=== PATIENT | male | born 1945 | race Caucasian/White ===

== ENCOUNTER 2016-05-19 06:23 | Day surgery (SDC) | payer MEDICARE, OTHER ==
[2016-05-19] VITALS (27 sets, daily range): BP systolic 130–160; BP diastolic 62–79; PULSE 44–102; RESP 10–23; Ht 167.6 cm; Wt 85.5 kg
[~2016-05-19] VITALS: Ht 167.6 cm; Wt 85.5 kg
[2016-05-19] MEDS ORDERED: LIDOCAINE 1% (MDV) 20 ML INJ ONE (06:52)
[2016-05-19] MEDS ORDERED: BUPIVACAINE 0.5% (SDV) 30 ML INJ ONE (06:53)
[2016-05-19] MEDS ORDERED: POLYMYXIN/BACITRACIN 1L IRRIG IRR ONE (07:00)
[2016-05-19 07:23] LABS: ADD SCAN DIFF NO
[2016-05-19 07:25] LABS: BASOPHIL # 0.1 10^3/ul (0.0-0.1); BASOPHILS % 0.6 % (0.0-2.0); EOSINOPHILS # 0.1 10^3/ul (0.0-0.5); EOSINOPHILS % 1.2 % (0.0-7.0); LYMPHOCYTES # 3.7 10^3/ul (0.8-2.9); LYMPHOCYTES % 44.9 % (15.0-51.0); MEAN CORPUSCULAR HGB CONC 34.1 g/dl (32.0-37.0); MEAN CORPUSCULAR VOLUME 87.8 fl (82.0-101.0); MEAN PLATELET VOLUME 11.2 fl (7.4-10.4); MONOCYTE # 0.5 10^3/ul (0.3-0.9); MONOCYTES % 6.3 % (0.0-11.0); NEUTROPHIL # 3.8 10^3/ul (1.6-7.5); NEUTROPHILS % 46.6 % (39.0-77.0); PLATELET COUNT 200 10^3/UL (140-415); RED BLOOD COUNT 4.67 10^6/ul (4.70-6.10); RED CELL DISTRIBUTION WIDTH 12.5 % (11.5-14.5); WHITE BLOOD COUNT 8.2 10^3/ul (4.8-10.8)
[2016-05-19] MEDS ORDERED: CEFAZOLIN 1 GM/50 ML (PMX) 50 ML IVPB ONE ×2 (07:31→08:16)
[2016-05-19] MEDS ORDERED: PRAV10TA43 PO (08:04)
[2016-05-19] MEDS ORDERED: VALS1TAB76 PO (08:04)
[2016-05-19] MEDS ORDERED: LOSA25TA2 PO (08:04)
[2016-05-19] MEDS ORDERED: FENO160T13 PO (08:04)
[2016-05-19 08:05] LABS: INR 0.97; PROTIME 12.9 Sec (12.2-14.2)
[2016-05-19 08:06] LABS: PARTIAL THROMBOPLASTIN TIME 27.2 Sec (25.0-35.0)
[2016-05-19] MEDS ORDERED: MIDAZOLAM 1 MG/ML 2 ML INJ ONE (08:07)
[2016-05-19] MEDS ORDERED: PROPOFOL 40 ML ONE (08:07)
[2016-05-19] MEDS ORDERED: FENTAnyl 50 MCG/ML VIAL ONE (08:07)
[2016-05-19 08:10] LABS: POTASSIUM 3.8 mmol/L (3.5-5.1)
[2016-05-19 08:19] LABS: CALCIUM 9.3 mg/dl (8.4-10.2); CREATININE 1.49 mg/dl (0.61-1.24)
[2016-05-19] MEDS ORDERED: PROPOFOL 20 ML ONE (09:20)
[2016-05-19] MEDS ORDERED: SOD CHLORIDE 0.9% 1,000 ML IV SCH (09:38)
[2016-05-19] MEDS ORDERED: SOD CHLORIDE 0.9% 1,000 ML ONE (10:00)
[2016-05-19] MEDS ORDERED: IOHEXOL 350MG/ML 50 ML BTL ONE (10:00)
[2016-05-19] MEDS ORDERED: ACETAMINOPHEN 325 MG TAB PO PRN ×2 (10:00→12:00)
[2016-05-19] MEDS ORDERED: morphine 2 MG INJ IV PRN ×2 (10:00→12:00)
--- NOTE | 2016-05-19 10:24 | RADRPT ---
PROCEDURE: XR Chest. CLINICAL INDICATION: Shortness of breath. TECHNIQUE: Single frontal chest x-ray. COMPARISON: None available FINDINGS: The lungs are clear. No focal opacification is seen. No pneumothorax or pleural effusion is seen. The cardiomediastinal silhouette is unremarkable. The right hemidiaphragm is mildly elevated. A brittni l lead left pacemaker is in place with the lead tips overlying the right atrium and right ventricle. The osseous structures are grossly unremarkable. IMPRESSION: No evidence of acute cardiopulmonary disease. RPTAT: JJ .Natalio Soto MD, MD Date Time Electronically viewed and signed by .Natalio Soto MD, MD on 05/19/2016 10:24 .A/
--- NOTE | 2016-05-19 10:42 | SP ---
DATE OF PROCEDURE: 05/19/2016 PREPROCEDURE DIAGNOSIS: The patient is a 70-year-old gentleman with history of hypertension, histor y of recurrent syncope, history of paroxysmal atrial fibrillation with tachybrady syndrome and falls , who required a pacemaker to prevent further syncope and use of antiarrhythmic medications. POSTPROCEDURE DIAGNOSIS: The patient is a 70-year-old gentleman with history of hypertension, history of recurrent syncope, h istory of paroxysmal atrial fibrillation with tachybrady syndrome and falls, who required a pacemake r to prevent further syncope and use of antiarrhythmic medications. PROCEDURE PERFORMED: 1. Dual-chamber pacemaker implantation. 2. Fluoroscopy with interpretation. SURGEON: Mikhail Crow MD DEVICE INFORMATION: 1. The implanted device is [employer] MRI safe, [employer] MRI pacemaker 2272, serial #[id number], placed in the left pectoral area. 2. Atrial lead is [employer] Tendril MRI LTA lead 1200 52 cm lead, serial #[id number]. 3. RV lead is [employer] Tendril MRI lead LTA 1200, 58 cm lead [id number]. ACUTE THRESHOLD: R-wave atrial sensing is 3.4 millivolts, lead impedance 440 ohms, threshold 1.5 vo lts at 0.4 msec. Ventricular R-wave was 3.2 millivolts, lead impedance 560 ohms, threshold 0.75 vol ts at 0.4 msec. Initial setting is DDD 50. DESCRIPTION OF PROCEDURE: The informed consent was obtained. The patient was brought into the [facility] t station in a fasting condition. He received antibiotics. Anesthesiologist supervised airway florentino tion. The left chest was prepped and draped in the usual sterile fashion, 1% lidocaine was used for local analgesia. Using a #10 scalpel, a 3 cm incision was placed and a pocket was created using ca utery and blunt dissection. Using modified Seldinger technique, subclavian was cannulated and J-wir e passed easily. From there, using an 8-Maltese sheath as a base split sheath technique was ascertai arianna to allow placement of 8-Maltese sheath. From there, RV lead was advanced into RV apex and was ac tively fixed. Some slack was left inside the lead and the sheath was pulled away. The lead was sut ured to the muscle with 0 Ethibond sutures. Then, another 8-Maltese sheath was introduced and the at rial lead was advanced using J-tip stylet. It was positioned in the right atrial appendage. It was actively fixed. The J stylet was pushed away. The sheath was pulled away and the lead was sutured to the muscle layer with 0 Ethibond sutures. Then, both leads were attached to the generator. The pocket was irrigated with antibiotic solution and the entire system was placed inside the pocket . The skin was closed in multiple layers of 2-0 Vicryl sutures. Steri-Strips were placed top of th e incision. The patient appears to have tolerated the procedure well. He will have a chest x-ray, left arm sling, continuous . Dictated By: MIKHAIL CAMARENA/FABIO Conf#: [id number] DID#: [id number]
[2016-05-19] MEDS ORDERED: HYDROCODONE/APAP (5/325) TAB PO PRN (12:00)
[2016-05-19] MEDS ORDERED: DOCUSATE SODIUM 100 MG CAP PO PRN (12:00)
[2016-05-19] MEDS: LOSARTAN 25 MG TAB PO SCH (12:00)
[2016-05-19] MEDS ORDERED: ALBUTEROL/IPRATROPIUM (NEB) 3 ML AMP HHN PRN (12:00)
[2016-05-19] MEDS ORDERED: MAGNESIUM HYDROXIDE 30ML CUP PO PRN (12:00)
[2016-05-19] MEDS ORDERED: NACL 0.9% 3 ML SYG IV SCH (12:00)
[2016-05-19] MEDS ORDERED: ONDANSETRON 4 MG INJ IV PRN (12:00)
[2016-05-19] MEDS: hydrALAzine 20 MG INJ IV PRN ×2 (12:13→18:25)
--- NOTE | 2016-05-19 12:19 | HP ---
DATE OF ADMISSION: 05/19/2016 REASON FOR ADMISSION: Status post pacemaker placement for tachybrady syndrome. HISTORY OF PRESENT ILLNESS: This is a 70-year-old male who has a past medical history of hypertension, history of recurrent syncope, history of paroxysmal atrial fibrillation with tachycardia syndrome and falls, history of emphysema, who was brought in by blueprinting machine operator, Dr. Home Crow, for possible pacemaker placement. The patient underwent a dual-chamber pacemaker implantation. At the time of my evaluation, he was hemodynamically stable. I evaluated the patient in the recovery room. His breathing is better. No chest pain, palpitation, headache, dizziness, blurry vision, constipation, diarrhea. He is written for IV Ancef q. 8 hours for perioperative prophylaxis. At the time of my evaluation, he is waiting for a telemetry floor bed. REVIEW OF SYSTEMS: Positive for a fall episode and palpitations intermittently. Other review of systems has been obtained and is negative except what is mentioned in the history of present illness. PAST MEDICAL HISTORY: Notable for hypertension, emphysema, history of atrial fibrillation with rate tachybrady syndrome and history of falls at home. PAST SURGICAL HISTORY: History of cataract surgery 2014. SOCIAL HISTORY: The patient lives with his family in [place]. No smoking, alcohol or recreational drug use. FAMILY HISTORY: No family history of chronic kidney disease or coronary artery disease as per the family. PHYSICAL EXAMINATION: VITAL SIGNS: Temperature 98.5, heart rate 50, respiration 20, blood pressure 139/67, saturation 97% on 2 liters nasal cannula. GENERAL: Awake, alert, in no distress. HEENT: Normal. Oropharynx clear. NECK: Supple, no JVD, no lymphadenopathy. LUNGS: Clear to auscultation. No crackles, no wheezes. HEART: S1, S2, with regular rhythm, no murmur. ABDOMEN: Soft, nontender, nondistended. Bowel sounds are present. Pacemaker site is clear. No hematoma, no bleeding. EXTREMITIES: No clubbing, cyanosis, or edema. NEUROLOGICAL: Nonfocal, intact. Cranial nerves II through XII intact. No focal deficits. SKIN: No rash. PSYCHIATRIC: Appropriate affect. LABORATORY DATA/DIAGNOSTIC IMAGING: WBC 8.2, hemoglobin 14, platelet count 200. Sodium 146, potassium 3.8, chloride 107, bicarbonate 25, BUN 28, creatinine 1.4, glucose 102, calcium 9.3. Prothrombin time 12.9, PTT 27.2, INR 0.97. IMPRESSION: This is a 70-year-old male with: 1. Status post dual chamber pacemaker placement for tachybrady syndrome with history of atrial fibrillation and history of falls. 2. History of atrial fibrillations with tachybrady syndrome. 3. History of hypertension. currently BP in systolic 190s 4. History of emphysema. 5. Atrial fibrillation. 6. Acute kidney injury secondary to prerenal azotemia on a previous history of possible chronic kidney disease. 7. Possible history of chronic kidney disease stage II to III secondary to hypertensive nephrosclerosis. PLAN: 1. The patient is getting admitted to the telemetry floor. We will continue the patient on IV Ancef 1 gram q. 8 hours for perioperative antibiotic coverage status post pacemaker placement. 2. Pepcid 20 mg IV b.i.d. for GI prophylaxis. 3. SCDs for DVT prophylaxis. 4. Continue the home medication of losartan 25 mg p.o. daily and hydralazine 10 mg IV every 4 hours p.r.n. systolic blood pressure more than 150. 5. Pain control with Tylenol, [place], morphine. The patient currently seen in the recovery room and the patient will be admitted to the telemetry floor. 6. We will continue to follow the patient along with the supply chain director, Dr. Home Crow. Dictated By: KELSY YAN MD, KP/FABIO Conf#: [id number] DID#: [id number] MTDD
[2016-05-19] MEDS: CEFAZOLIN 1 GM/50 ML (PMX) 50 ML IVPB SCH ×2 (16:15→22:34)
--- NOTE | 2016-05-19 17:55 | CONS ---
DATE OF ADMISSION: 05/19/2016 DATE OF CONSULTATION: 05/19/2016 TYPE OF CONSULTATION: Cardiology REASON FOR CONSULTATION: Hypertension. REQUESTING PHYSICIAN: Kelsy Bosch MD HISTORY OF PRESENT ILLNESS: Mr. Schultz is a 70-year-old male with a history of symptomatic bradyc ardia status post permanent pacemaker implant today, [employer]er group leader, recurrent syncope, hyp ertension, paroxysmal atrial fibrillation, who as stated before presented today and underwent placem ent of permanent pacemaker with Dr. Mikhail Huff due to bradycardia, symptomatic. Postoperatively, the patient has had uncontrolled blood pressures and I have been asked to manage. The patient at th is time has mild pain at the site of pacemaker insertion. Denies chest pain. PAST MEDICAL HISTORY: As above in HPI. MEDICATIONS CURRENTLY IN HOSPITAL: 1. Lipitor 20 mg at bedtime. 2. Pepcid 20 mg q.12. 3. Cefazolin. 4. Cozaar 25 mg daily. 5. Hydralazine p.r.n. 6. Zofran p.r.n. 7. Left Hand p.r.n. 8. Morphine p.r.n. 9. Colace p.r.n. 10. DuoNeb p.r.n. ALLERGIES: NO KNOWN DRUG ALLERGIES. SOCIAL HISTORY: No tobacco, ETOH or illicit drug use. FAMILY HISTORY: Negative for sudden cardiac or early CAD. REVIEW OF SYSTEMS: As above in HPI. CONSTITUTIONAL: No fevers, chills. PULMONARY: No current shortness of breath. CARDIOVASCULAR: Bradycardia, status post permanent pacemaker. GASTROINTESTINAL: No vomiting. GENITOURINARY: No hematuria. MUSCULOSKELETAL: Degenerative joint disease. PSYCHIATRIC: The patient denies depression. NEUROLOGIC: No documented history of CVA. PHYSICAL EXAMINATION VITAL SIGNS: Temperature of 97.9, blood pressure markedly elevated at 160/73, pulse 89, respiratory rate 20, saturating 96%. GENERAL: The patient is alert, awake, in no acute distress. NECK: JVP approximately 8 to 9 cm water. CHEST: Fair movement throughout. Left upper pocket pacer site covered by a Tegaderm. Clean, dry an d intact, no significant swelling. ABDOMEN: Positive bowel sounds, soft. EXTREMITIES: No edema, 1+ pulses bilaterally posterior tibial. LABORATORY DATA: As above in HPI, with most recent from today, white blood cell count 8.2, hemoglob in 14, platelet count 200. Sodium 146, potassium 3.8, creatinine of 1.49, BUN of 28. INR 0.97. IMAGING STUDIES: As above in HPI. No further imaging studies for my review at this time. ECG: No electrocardiograms for my review at this time. IMPRESSION: 1. Hypertension, uncontrolled. 2. Postop day #0 status post permanent pacemaker implantation for symptomatic bradycardia. 3. Symptomatic bradycardia. 4. History of atrial fibrillation with tachybrady syndrome. 5. Renal failure. 6. Dyslipidemia. RECOMMENDATIONS: 1. At this time, would maintain the patient on telemetry monitoring to continue to assess pacemaker function. 2. Give patient his baseline losartan and follow up blood pressures with possible need for further up titration and we will continue the patient's p.r.n. hydralazine at this time. 3. Pain control. 4. Continue the patient's Ancef prophylactic antibiotics postop. 5. Follow up the patient's volume status closely and we will check a BNP to further assess this. 6. Ongoing evaluation by PMD, nephrology. Additionally, we will check a fasting lipid panel for ge neral risk stratification and adjust the patient's lipid-lowering medication as necessary. Thank you for allowing me to take part in the care of this patient. I will continue to follow him donovan mcadams closely with you. Further recommendations will be made as the patient progresses through his in patient hospital clinical course. Dictated By: MASTER MAN/NTS Conf#: [id number] DID#: [id number] CC: MIKHAIL HUFF MD; KELSY BOSCH MD;*[facility]*
--- NOTE | 2016-05-19 19:21 | RADRPT ---
Vent Rate: 50 bpm RR Interval: 0 msec MI Interval: 0 msec QRS Duration: 102 msec QT Interval: 464 msec QTC Interval: 423 msec P-R-T [place]: 0 - -27 - 62 degrees Electronic atrial pacemaker Electronically Signed By: Jorge Luis Thakkar [id number]
[2016-05-19] MEDS ORDERED: ATORVASTATIN 20 MG TAB PO SCH (21:00)
[2016-05-19] MEDS: FAMOTIDINE 20 MG INJ IV SCH (21:24)
[2016-05-20] VITALS (9 sets, daily range): BP systolic 138–156; BP diastolic 67–72; PULSE 49–91; RESP 16–18
[2016-05-20] MEDS: CEFAZOLIN 1 GM/50 ML (PMX) 50 ML IVPB SCH ×2 (05:58→14:51)
[2016-05-20 07:14] LABS: ADD SCAN DIFF NO
[2016-05-20 07:33] LABS: CHOL/HDL RATIO 5.2 RATIO
[2016-05-20 07:34] LABS: BASOPHILS % 0.4 % (0.0-2.0); EOSINOPHILS % 0.2 % (0.0-7.0); HEMATOCRIT 39.9 % (42.0-52.0); HEMOGLOBIN 13.4 g/dl (14.0-18.0); LYMPHOCYTES # 2.9 10^3/ul (0.8-2.9); LYMPHOCYTES % 25.9 % (15.0-51.0); MEAN CORPUSCULAR HEMOGLOBIN 29.8 pg (29.0-33.0); MEAN CORPUSCULAR HGB CONC 33.6 g/dl (32.0-37.0); MEAN CORPUSCULAR VOLUME 88.7 fl (82.0-101.0); MEAN PLATELET VOLUME 11.4 fl (7.4-10.4); MONOCYTE # 0.9 10^3/ul (0.3-0.9); MONOCYTES % 7.5 % (0.0-11.0); NEUTROPHIL # 7.4 10^3/ul (1.6-7.5); NEUTROPHILS % 65.6 % (39.0-77.0); PLATELET COUNT 213 10^3/UL (140-415); RED CELL DISTRIBUTION WIDTH 12.9 % (11.5-14.5); WHITE BLOOD COUNT 11.3 10^3/ul (4.8-10.8)
[2016-05-20 07:36] LABS: POTASSIUM 3.6 mmol/L (3.5-5.1)
[2016-05-20 07:39] LABS: CALCIUM 8.9 mg/dl (8.4-10.2); CREATININE 1.21 mg/dl (0.61-1.24)
[2016-05-20] MEDS: LOSARTAN 25 MG TAB PO SCH (09:06)
[2016-05-20] MEDS: FAMOTIDINE 20 MG INJ IV SCH (09:07)
--- NOTE | 2016-05-20 11:04 | PN ---
Date/Time of Note Date/Time of Note DATE: 05/20/16 TIME: 10:56 Assessment/Plan VTE Prophylaxis VTE Prophylaxis Intervention: SCD's Lines/Catheters IV [facility]from [facility] [place] Assessment/Plan Assessment/Plan 1. Status post dual chamber pacemaker placement for tachybrady syndrome with history of atrial fibrillation and history of falls. 2. History of atrial fibrillations with tachybrady syndrome. 3. History of hypertension. currently BP in systolic 190s 4. History of emphysema. 5. Atrial fibrillation. 6. Acute kidney injury secondary to prerenal azotemia on a previous history of possible chronic kidney disease. 7. Possible history of chronic kidney disease stage II to III secondary to hypertensive nephrosclerosis. PLAN: IV ancef BP control with Losartan and IV hydralazine prn cardiology to follow- if cleared then possible d/c home today Subjective 24 Hr Interval Summary Free Text/Dictation remained stable, afebrile, BP stable Exam/Review of Systems Vital Signs Vitals Vital Signs Date Time Temp Pulse Resp B/P Pulse Ox O2 Delivery O2 Flow Rate FiO2 05/20/16 09:07 54 138/68 05/20/16 08:04 94.4 18 95 05/19/16 18:52 Nasal Cannula 2.0 Intake and Output 05/19/16 05/19/16 05/20/16 15:00 23:00 07:00 Intake Total 120 ml 280 ml Output Total 250 ml 400 ml Balance -130 ml -120 ml Exam GENERAL: Awake, alert, in no distress. HEENT: Normal. Oropharynx clear. NECK: Supple, no JVD, no lymphadenopathy. LUNGS: Clear to auscultation. No crackles, no wheezes. HEART: S1, S2, with regular rhythm, no murmur. ABDOMEN: Soft, nontender, nondistended. Bowel sounds are present. Pacemaker site is clear. No hematoma, no bleeding. EXTREMITIES: No clubbing, cyanosis, or edema. NEUROLOGICAL: Nonfocal, intact. Cranial nerves II through XII intact. No focal deficits. SKIN: No rash. PSYCHIATRIC: Appropriate affect. Results Result Diagram: 05/20/16 0641 05/20/16 0641 Results 24 hrs Laboratory Tests Test 05/20/16 06:41 Anion Gap 18 H Basophils # 0.0 Basophils % 0.4 Blood Urea Nitrogen 23 H Calcium Level 8.9 Carbon Dioxide Level 26 Chloride Level 106 Cholesterol Level 111 Cholesterol/HDL Ratio 5.2 Creatinine 1.21 Eosinophils # 0.0 Eosinophils % 0.2 Glucose Level 97 HDL Cholesterol 21 L Hematocrit 39.9 L Hemoglobin 13.4 L LDL Cholesterol, Calculated 61 Lymphocytes # 2.9 Lymphocytes % 25.9 Mean Corpuscular Hemoglobin 29.8 Mean Corpuscular Hemoglobin Concent 33.6 Mean Corpuscular Volume 88.7 Mean Platelet Volume 11.4 H Monocytes # 0.9 Monocytes % 7.5 Neutrophils # 7.4 Neutrophils % 65.6 Nucleated Red Blood Cells # 0.0 Nucleated Red Blood Cells % 0.0 Platelet Count 213 Potassium Level 3.6 Red Blood Count 4.50 L Red Cell Distribution Width 12.9 Sodium Level 146 H Triglycerides Level 143 White Blood Count 11.3 #H Medications Medications Current Medications Miscellaneous Information (* Miscellaneous Pharmacy Order) HOLD all METFORMIN ... ONCE XX ; Start 05/19/16 at 10:00; Stop 05/21/16 at 09:59 Acetaminophen (Tylenol Tab) 650 mg Q4H PRN PO NON-CARDIAC PAIN LEVEL (1-3); Start 05/19/16 at 10:00 Morphine Sulfate 2 mg 2 mg Q2H PRN IV FOR NON CARDIAC PAIN (4-10); Start at 10:00 Cefazolin Sodium (Ancef 1 Gm/50 ml (Pmx)) 50 ml @ 100 mls/hr Q8 IVPB Last administered on 05/20/16 05:58; Admin Dose 100 MLS/HR; Start 05/19/16 at 14:00 Miscellaneous Information (* Miscellaneous Pharmacy Order) DC all Lovenox, Hepari... ONCE XX ; Start 05/19/16 at 10:00 Losartan Potassium (Cozaar) 25 mg DAILY PO Last administered on 05/20/16 09:06 ; Admin Dose 25 MG; Start 05/19/16 at 12:00 Atorvastatin Calcium (Lipitor) 20 mg HS PO Last administered on 05/19/16 21:24 ; Admin Dose 20 MG; Start 05/19/16 at 21:00 Hydralazine HCl (Apresoline) 10 mg Q4H PRN IV SBP>150 mm hg Last administered on 05/19/16 18:25; Admin Dose 10 MG; Start 05/19/16 at 12:00 Ondansetron HCl (Zofran Inj) 4 mg Q4H PRN IV NAUSEA AND/OR VOMITING; Start at 12:00 Acetaminophen (Tylenol Tab) 650 mg Q6H PRN PO PAIN LEVEL 1-3 OR FEVER; Start at 12:00 Acetaminophen/ Hydrocodone Bitart ([place] (5/325)) 1 tab Q6H PRN PO MODERATE PAIN LEVEL 4-6; Start 05/19/16 at 12:00 Morphine Sulfate (morphine) 2 mg Q4H PRN IV SEVERE PAIN LEVEL 7-10 Last administered on 05/19/16 12:13; Admin Dose 2 MG; Start 05/19/16 at 12:00 Docusate Sodium (Colace) 100 mg Q12H PRN PO CONSTIPATION; Start 05/19/16 at 12: 00 Magnesium Hydroxide (Milk Of Mag) 30 ml DAILY PRN PO CONSTIPATION; Start at 12:00 Famotidine (Pepcid Iv) 20 mg Q12 IV Last administered on 05/20/16 09:07; Admin Dose 20 MG; Start 05/19/16 at 21:00 KELSY YAN MD May 20, 2016 11:04
--- NOTE | 2016-05-20 11:05 | PDOCDIS ---
Discharge Instructions CONDITION Patient Condition: Good HOME CARE INSTRUCTIONS: Special Diet: heart healthy diet ACTIVITY: Activity Restrictions: Slowly Increase Activity Rest between Activity Avoid heavy lifting Avoid Heavy Housework FOLLOW UP/APPOINTMENTS Appointments follow up with his own in 1-2 week after discharge, Follow up with Dr millan/ Ele in 1-2 week after discharge, Follow up with Dr.Kalpesh Yan for his CKD in 2-3 weeks( if pt wants to follow ) KELSY YAN MD May 20, 2016 11:05
[2016-05-20] MEDS ORDERED: CEPH500C PO (11:10)
[2016-05-20] MEDS ORDERED: ONDA4TAB8 PO (11:10)
[2016-05-20] MEDS ORDERED: HYDR-3498 PO (11:10)
--- NOTE | 2016-05-20 17:35 | CONS ---
Date/Time of Note Date/Time of Note DATE: 05/20/16 TIME: 17:31 Assessment/Plan Assessment/Plan Chief Complaint/Hosp Course IMPRESSION: 1. Hypertension-overall improved BP on current medications 2. Postop day #1 status post permanent pacemaker implantation for symptomatic bradycardia. 3. Symptomatic bradycardia. 4. History of atrial fibrillation with tachybrady syndrome. 5. Renal failure. 6. Dyslipidemia. REcc: -Continue statin -Continue losartan -abx prophylaxis -D/C planning with outpatient f/u 7-10 days Problems: Consultation Date/Type/Reason Admit Date/Time May 19, 2016 at 09:38 Initial Consult Date 05/19/2016 Type of Consultation: cardiology Reason for Consultation HTN Referring Provider: MIKHAIL HUFF MD Exam/Review of Systems Vital Signs Vitals Vital Signs Date Time Temp Pulse Resp B/P Pulse Ox O2 Delivery O2 Flow Rate FiO2 05/20/16 16:55 50 05/20/16 12:17 97.6 18 156/70 95 05/20/16 08:20 Nasal Cannula 2.0 Intake and Output 05/19/16 05/19/16 05/20/16 15:00 23:00 07:00 Intake Total 120 ml 280 ml Output Total 250 ml 400 ml Balance -130 ml -120 ml Exam Review of Systems: CONSTITUTIONAL: No fevers, chills. PULMONARY: No sob CARDIOVASCULAR: No chest pain/palpitations GASTROINTESTINAL: No nausea/vomiting. GENITOURINARY: No hematuria/dysuria. MUSCULOSKELETAL: No myagias/arthalgias. PSYCHIATRIC: The patient denies depression. NEUROLOGIC: No weakness Constitutional: alert, oriented Psych: no complaints Head: normocephalic ENMT: mucosa pink and moist Neck: jvd (8 cm water), supple Respiratory: clear to auscultation Cardiovascular: regular rate and rhythm Gastrointestinal: non-tender, soft Musculoskeletal: muscle tone (normal) Extremities: edema (none) Neurological: other (No mfocal deficits) Results Result Diagram: 05/20/16 0641 05/20/16 0641 Results 24 hrs Laboratory Tests Test 05/20/16 06:41 Anion Gap 18 H Basophils # 0.0 Basophils % 0.4 Blood Urea Nitrogen 23 H Calcium Level 8.9 Carbon Dioxide Level 26 Chloride Level 106 Cholesterol Level 111 Cholesterol/HDL Ratio 5.2 Creatinine 1.21 Eosinophils # 0.0 Eosinophils % 0.2 Glucose Level 97 HDL Cholesterol 21 L Hematocrit 39.9 L Hemoglobin 13.4 L LDL Cholesterol, Calculated 61 Lymphocytes # 2.9 Lymphocytes % 25.9 Mean Corpuscular Hemoglobin 29.8 Mean Corpuscular Hemoglobin Concent 33.6 Mean Corpuscular Volume 88.7 Mean Platelet Volume 11.4 H Monocytes # 0.9 Monocytes % 7.5 Neutrophils # 7.4 Neutrophils % 65.6 Nucleated Red Blood Cells # 0.0 Nucleated Red Blood Cells % 0.0 Platelet Count 213 Potassium Level 3.6 Red Blood Count 4.50 L Red Cell Distribution Width 12.9 Sodium Level 146 H Triglycerides Level 143 White Blood Count 11.3 #H Medications Medications Current Medications Miscellaneous Information (* Miscellaneous Pharmacy Order) HOLD all METFORMIN ... ONCE XX ; Start 05/19/16 at 10:00; Stop 05/21/16 at 09:59 Acetaminophen (Tylenol Tab) 650 mg Q4H PRN PO NON-CARDIAC PAIN LEVEL (1-3); Start 05/19/16 at 10:00 Morphine Sulfate 2 mg 2 mg Q2H PRN IV FOR NON CARDIAC PAIN (4-10); Start at 10:00 Cefazolin Sodium (Ancef 1 Gm/50 ml (Pmx)) 50 ml @ 100 mls/hr Q8 IVPB Last administered on 05/20/16 14:51; Admin Dose 100 MLS/HR; Start 05/19/16 at 14:00 Losartan Potassium (Cozaar) 25 mg DAILY PO Last administered on 05/20/16 09:06 ; Admin Dose 25 MG; Start 05/19/16 at 12:00 Atorvastatin Calcium (Lipitor) 20 mg HS PO Last administered on 05/19/16 21:24 ; Admin Dose 20 MG; Start 05/19/16 at 21:00 Hydralazine HCl (Apresoline) 10 mg Q4H PRN IV SBP>150 mm hg Last administered on 05/19/16 18:25; Admin Dose 10 MG; Start 05/19/16 at 12:00 Ondansetron HCl (Zofran Inj) 4 mg Q4H PRN IV NAUSEA AND/OR VOMITING; Start at 12:00 Acetaminophen (Tylenol Tab) 650 mg Q6H PRN PO PAIN LEVEL 1-3 OR FEVER; Start at 12:00 Acetaminophen/ Hydrocodone Bitart ([place] (5/325)) 1 tab Q6H PRN PO MODERATE PAIN LEVEL 4-6 Last administered on 05/20/16 12:53; Admin Dose 1 TAB; Start at 12:00 Morphine Sulfate (morphine) 2 mg Q4H PRN IV SEVERE PAIN LEVEL 7-10 Last administered on 05/19/16 12:13; Admin Dose 2 MG; Start 05/19/16 at 12:00 Docusate Sodium (Colace) 100 mg Q12H PRN PO CONSTIPATION; Start 05/19/16 at 12: 00 Magnesium Hydroxide (Milk Of Mag) 30 ml DAILY PRN PO CONSTIPATION; Start at 12:00 Famotidine (Pepcid Iv) 20 mg Q12 IV Last administered on 05/20/16 09:07; Admin Dose 20 MG; Start 05/19/16 at 21:00 MASTER HULL May 20, 2016 17:35
--- NOTE | 2016-05-24 16:02 | DS ---
DATE OF ADMISSION: 05/19/2016 DATE OF DISCHARGE: 05/20/2016 FINAL DISCHARGE DIAGNOSES: 1. Tachybrady syndrome and sick sinus syndrome, status post dual chamber pacemaker placement during this admission. 2. History of atrial fibrillation with tachybrady syndrome. 3. History of hypertension. 4. History of emphysema. 5. History of atrial fibrillation on anticoagulation. 6. Acute kidney injury secondary to prerenal azotemia. 7. Possible history of chronic kidney disease stage II to III secondary to hypertensive nephroscler osis. CONSULTATIONS DONE DURING THIS HOSPITALIZATION: 1. Cardiology consult, Dr. Adonis Marlow. 2. Electrophysiology consult, Dr. Home Crow. PROCEDURES PERFORMED DURING THIS HOSPITALIZATION: The patient underwent a dual-chamber pacemaker pl acement for tachybrady syndrome with a history of atrial fibrillation. HOSPITAL COURSE: This is a 70-year-old male with a past medical history of hypertension, gastroesop hageal reflux disease, history of recurrent syncope, history of atrial fibrillations and tachybrady syndrome. The patient was brought in by Dr. Home Crow for pacemaker placement. He underwent a du al-chamber pacemaker placement. Post-pacemaker placement he was admitted for observation where he r emained hemodynamically stable. The patient was given metoprolol and other IV fluids for his preren al azotemia causing acute kidney injury. He is symptomatically improved and much better the next da y morning. The patient was followed by device repair technician, Dr. Adonis Marlow, who was covering for Dr. Thayer and cleared for discharge to home, so he gets discharged to home. DISPOSITION: To home. DISCHARGE CONDITION: Stable and improved compared to admission. DISCHARGE ACTIVITIES: As tolerated, slowly resume to the normal baseline activity. DISCHARGE DIET: Cardiac diet. DISCHARGE MEDICATIONS: The patient is given a prescription of Keflex 500 mg p.o. t.i.d. x5 days upo n discharge. He is also continued on all of his other previous home medications including anticoagu lation for atrial fibrillation. DISCHARGE FOLLOWUP AND INSTRUCTIONS: 1. The patient is to follow up with Dr. Kelsy Bosch in 1 to 2 weeks after discharge. 2. The patient is to follow with device repair technician, Dr. Home Crow/Dr. Adonis Marlow, as outpatient in 1 to 2 weeks after discharge. He has been explained about with the help of the half Slovak transl ator, his daughter was at bedside. They understood and verbalized understanding. Dictated By: KELSY BOSCH MD, KP/FABIO Conf#: [id number] DID#: [id number]
== END 2016-05-20 19:00 | disposition home or self-care (01) ==
LOC: SDS 06:23 → MS4 09:38
PROVIDERS: ADMIT Internal Medicine Nephrology; ATTEND Internal Medicine Nephrology
DX: I49.5 Sick sinus syndrome (principal); I48.0 Paroxysmal atrial fibrillation; I10 Essential (primary) hypertension; J43.9 Emphysema, unspecified; E78.5 Hyperlipidemia, unspecified; N19 Unspecified kidney failure; Z79.01 Long term (current) use of anticoagulants; Z91.81 History of falling
CPT/HCPCS: 33208; 71010; 80048; 80061; 85025; 85610; 85730; 93005; 96365; 96375; 96376; 97163; C1785; C1898; C2629; G0378; J0360; J0690; J2250; J2270; J3010; J7040; Q9967